=== PATIENT | male | born 1935 | race Caucasian/White ===

== ENCOUNTER → 2018-01-04 06:57 | Outpatient (CLI) | payer MEDICARE, SELFPAY ==
[2018-01-04 07:26] LABS: Add Manual Diff / Slide Review NO; Basophils Percent Auto 0.9 % (0-2); Eosinophils Percent Auto 2.4 % (2-4); Hematocrit 43.4 % (41-53); Hemoglobin 14.7 g/dL (13.5-17.5); Lymphocytes Percent Auto 46.3 % (25-40); Mean Corpuscular Hemoglobin 33.4 PG (26-34); Mean Corpuscular Volume 98.2 fL (80-100); Monocytes Percent Auto 6.4 % (3-14); Neutrophils Absolute Auto 3000 /uL (3000-5900); Platelet Count 151 X10^3/uL (150-400); Red Blood Cell Count 4.42 X10^6/uL (4.5-5.9); Red Cell Distribution Width 14.3 % (11.6-14.8); White Blood Cell Count 6.9 X10^3/uL (4.5-11.0)
[2018-01-04 07:38] LABS: Alanine Aminotransferase 29 IU/L (21-72); Albumin 4.7 g/dL (3.5-5.0); Albumin Globulin Ratio 1.5 (1.0-2.8); Alkaline Phosphatase 74 U/L (38-126); Aspartate Aminotransferase 31 IU/L (17-59); Bilirubin Total 0.6 mg/dL (0.2-1.3); Blood Urea Nitrogen 27 mg/dL (9-20); Carbon Dioxide 28 mmol/L (22-32); Chloride 105 mmol/L (98-107); Estimated Glomerular Filt Rate > 60.0 mL/min (>60); Globulin 3.1 g/dL (1.7-4.1); Glucose 100 mg/dL (80-110); HEMOLYSIS < 15 (0-50); Sodium 145 mmol/L (137-145); Total Protein 7.8 g/dL (6.3-8.2)
[2018-01-04 07:39] LABS: Potassium 5.7 mmol/L (3.4-5.1)
== END ==
PROVIDERS: PCP Family Medicine; Visit Provider Family Medicine
DX: E87.5 Hyperkalemia (principal); D69.9 Hemorrhagic condition, unspecified; D75.89 Other specified diseases of blood and blood-forming organs
CPT/HCPCS: 36415; 80053; 85025

== ENCOUNTER → 2018-10-31 06:55 | Outpatient (CLI) | payer MEDICARE, SELFPAY ==
[2018-10-31 10:05] LABS: Prostate Specific Antigen 1.82 ng/mL (0.10-4.00)
== END ==
PROVIDERS: PCP Family Medicine; Visit Provider Urology
DX: R97.20 Elevated prostate specific antigen [PSA] (principal)
CPT/HCPCS: 36415; 84153

== ENCOUNTER → 2019-08-30 08:20 | Outpatient (CLI) | payer MEDICARE, SELFPAY ==
[2019-08-30 09:54] LABS: Prostate Specific Antigen 2.93 ng/mL (0.10-4.00)
== END ==
PROVIDERS: PCP Family Medicine; Visit Provider Urology
DX: R97.20 Elevated prostate specific antigen [PSA] (principal)
CPT/HCPCS: 36415; 84153

== ENCOUNTER → 2020-04-12 07:55 | Outpatient (CLI) | payer MEDICARE, SELFPAY ==
[2020-04-12 09:33] LABS: Prostate Specific Antigen 3.21 ng/mL (0.10-4.00)
== END ==
PROVIDERS: PCP Family Medicine; Referring Provider Specialist; Visit Provider Specialist
DX: N40.0 Benign prostatic hyperplasia without lower urinary tract symptoms (principal)
CPT/HCPCS: 36415; 84153

== ENCOUNTER → 2020-08-23 10:59 | Outpatient (CLI) | payer MEDICARE, SELFPAY ==
--- NOTE | 2020-08-23 11:00 | DI.MRI.S_ITS ---
PROCEDURE: MR PELIS WO/W CON INDICATIONS: prostate cancer TECHNIQUE: Coronal HASTE, axial T1 FSE with fat saturation, 3-plane nonbreath-hold T2 FSE. After the administration of contrast, dynamic axial, delayed axial and coronal VIBE or 2-D FLASH with fat saturation through the pelvis. Optional diffusion weighted imaging and ADC may be performed. COMPARISON: [facility], CT, KIDNEY/ URETER/BLADDER, 05/06/2016, 14:17. FINDINGS: Image quality: Diffusion weighted and dynamic contrast enhanced images are diagnostic. Prostate: Gland size is 3.4 x 4.5 x 4.1 cm; ellipsoid gland volume is 32.6 mL. Lesion size(s): Lesion 1: 1.0 by 1.9 by 2.0 cm in oblique AP, oblique transverse, and craniocaudad dimensions. Lesion location(s): Lesion 1: Right-sided posterolateral mid level peripheral zone. This is best seen on the early contrast enhanced fat suppressed T1 weighted imaging. It is relatively poorly seen on the axial T2 imaging and can be seen asymmetrically present on the axial diffusion-weighted imaging. Lesion description: Lesion 1: The lesion is ovoid, sharply demarcated on axial T1 postcontrast fat suppressed early imaging, and does not show evidence of invasion directly through the right posterolateral peripheral prostate capsule into adjacent structures. T2 weighted imaging (T2WI) morphology score: Lesion 1: Peripheral zone PI-RADS score 5, given the circumscribed homogeneous moderately hypointense mass confined to the right peripheral zone prostate with greatest dimension greater than 1.5 cm. This lesion can be seen to asymmetrically thicken the peripheral zone on the right when compared to a normal dimension on the left. The transition zone demonstrates circumscribed in capsulated nodules with an appearance can Los consistent with BPH. Transition zone PI-RADS score 2. Diffusion weighted imaging (DWI) morphology score: Lesion 1: The ovoid masslike structure at the right posterolateral peripheral zone demonstrates elevated rather than depressed signal intensity on diffusion-weighted imaging. Typically prostate carcinoma is associated with a lower signal intensity than normal peripheral zone. Dynamic contrast enhancement (DCE): Lesion 1: Present Lesion PI-RADS score: Lesion 1: PI-RADS 3 overall Genitourinary system: Bladder wall thickness is normal. Distal ureters are non distended. Bowel and peritoneum: No pathologic free pelvic fluid. Inferior colon and small bowel loops are normal in caliber. Nodes and vessels: No pelvic or inguinal adenopathy by size criteria. Iliac vessels are normal in caliber. Soft tissues: No inguinal hernias. Bones: Marrow demonstrates normal overall signal, without lesions to suggest metastases. IMPRESSION: The prostate evaluation identifies a right posterolateral peripheral zone early enhancing ovoid sharply demarcated lesion, which is not associated with asymmetric low signal intensity on diffusion-weighted imaging. This is nonspecific in appearance, but within the transition zone sharply demarcated nodules are present consistent with BPH. A focal inflammatory process could explain the early enhancement pattern seen within the right-sided lesion discussed above. Dictated by: Ian Reyes M.D. on 08/26/2020 at 11:05 Approved by: Ian Reyes M.D. on 08/26/2020 at 12:00
== END ==
PROVIDERS: PCP Family Medicine; Referring Provider Family Medicine; Visit Provider Specialist
DX: C61 Malignant neoplasm of prostate (principal)
CPT/HCPCS: 72197

== ENCOUNTER → 2020-09-04 13:38 | Outpatient (CLI) | payer MEDICARE, SELFPAY ==
[2020-09-04] MEDS: COVID-19 VACC #1, MRNA(MOD) 100 MCG/0.5 ML VIAL IM (13:45)
== END ==
PROVIDERS: PCP Family Medicine; Visit Provider Internal Medicine
DX: Z23 Encounter for immunization (principal)
CPT/HCPCS: 0011A; 91301

== ENCOUNTER → 2020-10-03 08:19 | Outpatient (CLI) | payer MEDICARE, SELFPAY ==
[2020-10-03] MEDS: COVID-19 VACC #2, MRNA(MOD) 100 MCG/0.5 ML VIAL IM (08:23)
== END ==
PROVIDERS: PCP Family Medicine; Visit Provider Internal Medicine
DX: Z23 Encounter for immunization (principal)
CPT/HCPCS: 0012A; 91301

== ENCOUNTER → 2020-11-26 13:02 | Outpatient (CLI) | payer MEDICARE, SELFPAY | PROVIDERS: PCP Family Medicine; Referring Provider Specialist; Visit Provider Specialist | DX: N40.0 Benign prostatic hyperplasia without lower urinary tract symptoms (principal) | CPT/HCPCS: 36415; 84153 ==

== ENCOUNTER → 2021-04-23 10:21 | Outpatient (CLI) | payer MEDICARE, SELFPAY ==
[2021-04-23 12:02] LABS: Prostate Specific Antigen < 0.064 ng/mL (0.10-4.00)
== END ==
PROVIDERS: PCP Family Medicine; Referring Provider Specialist; Visit Provider Specialist
DX: C61 Malignant neoplasm of prostate (principal); R97.20 Elevated prostate specific antigen [PSA]
CPT/HCPCS: 36415; 84153

== ENCOUNTER → 2021-08-05 14:29 | Outpatient (CLI) | payer MEDICARE, SELFPAY ==
[2021-08-05 16:51] LABS: Prostate Specific Antigen < 0.064 ng/mL (0.10-4.00)
== END ==
PROVIDERS: PCP Family Medicine; Referring Provider Radiology Radiation Oncology; Visit Provider Radiology Radiation Oncology
DX: Z85.46 Personal history of malignant neoplasm of prostate (principal)
CPT/HCPCS: 36415; 84153

== ENCOUNTER → 2021-10-21 11:34 | Outpatient (CLI) | payer MEDICARE, SELFPAY ==
[2021-10-21 14:53] LABS: Prostate Specific Antigen < 0.064 ng/mL (0.10-4.00)
== END ==
PROVIDERS: PCP Family Medicine; Referring Provider Specialist; Visit Provider Specialist
DX: R97.20 Elevated prostate specific antigen [PSA] (principal)
CPT/HCPCS: 36415; 84153

== ENCOUNTER → 2022-02-16 09:54 | Outpatient (CLI) | payer MEDICARE, SELFPAY ==
[2022-02-16 12:19] LABS: Prostate Specific Antigen < 0.064 ng/mL (0.10-4.00)
== END ==
PROVIDERS: PCP Family Medicine; Referring Provider Specialist; Visit Provider Specialist
DX: C61 Malignant neoplasm of prostate (principal)
CPT/HCPCS: 36415; 84153

== ENCOUNTER → 2022-04-27 08:08 | Outpatient (CLI) | payer MEDICARE, SELFPAY ==
[2022-04-27 11:06] LABS: Prostate Specific Antigen < 0.064 ng/mL (0.10-4.00)
== END ==
PROVIDERS: PCP Family Medicine; Referring Provider Specialist; Visit Provider Specialist
DX: R97.20 Elevated prostate specific antigen [PSA] (principal)
CPT/HCPCS: 36415; 84153

== ENCOUNTER → 2023-05-11 10:06 | Outpatient (CLI) | payer MEDICARE, SELFPAY ==
[2023-05-11 11:58] LABS: Prostate Specific Antigen < 0.064 ng/mL (0.10-4.00)
== END ==
PROVIDERS: PCP Family Medicine; Referring Provider Specialist; Visit Provider Specialist
DX: R97.20 Elevated prostate specific antigen [PSA] (principal)
CPT/HCPCS: 36415; 84153

== ENCOUNTER → 2023-05-12 08:12 | Outpatient (CLI) | payer MEDICARE, SELFPAY ==
[2023-05-12 08:55] LABS: Add Manual Diff / Slide Review NO; Basophils Absolute Auto 0 /uL (0-100); Basophils Percent Auto 0.9 % (0-2); Eosinophils Absolute Auto 100 /uL (0-450); Eosinophils Percent Auto 2.7 % (2-4); Hematocrit 39.6 % (41-53); Hemoglobin 13.2 g/dL (13.5-17.5); Lymphocytes Absolute Auto 2600 /uL (1100-4500); Lymphocytes Percent Auto 46.8 % (25-40); Mean Corpuscular HGB Conc 33.4 % (30-36); Mean Corpuscular Hemoglobin 31.9 PG (26-34); Mean Corpuscular Volume 95.4 fL (80-100); Monocytes Absolute Auto 400 /uL (0-900); Monocytes Percent Auto 6.5 % (3-14); Neutrophils Absolute Auto 2400 /uL (1500-7000); Neutrophils Percent Auto 43.1 % (50-75); Platelet Count 166 X10^3/uL (150-400); Red Blood Cell Count 4.15 X10^6/uL (4.5-5.9); Red Cell Distribution Width 14.5 % (11.6-14.8); White Blood Cell Count 5.6 X10^3/uL (4.5-11.0)
[2023-05-12 09:26] LABS: Alanine Aminotransferase 24 IU/L (<50); Albumin 4.3 g/dL (3.5-5.0); Albumin Globulin Ratio 1.5 (1.0-2.8); Alkaline Phosphatase 78 U/L (38-126); Aspartate Aminotransferase 29 IU/L (17-59); BUN Creatinine Ratio 20.4 (6-22); Bilirubin Total 0.3 mg/dL (0.2-1.3); Blood Urea Nitrogen 21 mg/dL (9-20); C-Reactive Protein Quant < 0.5 mg/dL (<1.0); Calcium 10.1 mg/dL (8.4-10.2); Carbon Dioxide 24 mmol/L (22-32); Chloride 105 mmol/L (98-107); Cholesterol 190 mg/dL (140-199); Estimated Glomerular Filt Rate > 60 mL/min (>60); Globulin 2.9 g/dL (1.7-4.1); Glucose 104 mg/dL (80-110); HDL Cholesterol 68 mg/dL (40-60); HEMOLYSIS < 15 (0-50); LDL Cholesterol Calculated 105 mg/dL (<100); Potassium 4.9 mmol/L (3.4-5.1); Sodium 140 mmol/L (137-145); Total Protein 7.2 g/dL (6.3-8.2); Triglycerides 86 mg/dL (35-150)
[2023-05-12 09:49] LABS: Thyroid Stimulating Hormone 4.23 uIU/mL (0.47-4.68)
[2023-05-12 10:27] LABS: Folate > 20.0 ng/mL (2.76-20.0); Vitamin B12 405 pg/mL (239-931)
== END ==
PROVIDERS: PCP Family Medicine; Referring Provider Family Medicine; Visit Provider Family Medicine
DX: Z00.00 Encounter for general adult medical examination without abnormal findings (principal); E78.00 Pure hypercholesterolemia, unspecified; R73.9 Hyperglycemia, unspecified; Z13.0 Encounter for screening for diseases of the blood and blood-forming organs and certain disorders involving the immune mechanism; G62.9 Polyneuropathy, unspecified; D69.49 Other primary thrombocytopenia; D75.89 Other specified diseases of blood and blood-forming organs; E87.5 Hyperkalemia; R23.2 Flushing; R26.89 Other abnormalities of gait and mobility; F41.8 Other specified anxiety disorders
CPT/HCPCS: 36415; 80053; 80061; 82607; 82746; 83036; 84443; 85025; 86140

== ENCOUNTER → 2024-05-09 06:32 | Outpatient (CLI) | payer MEDICARE, SELFPAY ==
--- NOTE | 2024-05-09 06:34 | DI.ECHO.S_ITS ---
[facility]+ [facility] : : [id number] : [address] : : [id number] : : Phone: [phone] Echocardiogram Report + + :Name: ZEUS HEWITT Study Date: 05/09/2024 Height: 68 in : :Hospital ReadingLocation: Weight: 150 lb : : Gender: Male BSA: 1.8 m2 : :: 1935 Age: 89 yrs BP: 155/96 mmHg: :Reason For Study: Systolic Murmur : :Ordering Physician: ARIANA, : :WERNER Performed By: Kayy Goodwin : :Referring: WERNER LANE : + + Interpretation Summary The ejection fraction is estimated to be 55-60%. Grade II diastolic dysfunction. The left atrium is moderately dilated. The right ventricle is mildly dilated. The right ventricular systolic function is normal. The right atrium is mildly dilated. There is mild mitral regurgitation. There is mild aortic regurgitation. There is mild tricuspid regurgitation. The right ventricular systolic pressure is estimated to be at least 40 mmHg based on an estimated right atrial pressure of 8 mm Hg. Procedure: A two-dimensional transthoracic echocardiogram with color flow and Doppler was performed. The study quality was technically adequate. The patient had an echocardiogram, but there is no comparison study available. The patient was in sinus rhythm with heart rates between 54-64 bpm during the exam. The patient had occasional PACs during the exam. Left Ventricle: The left ventricle is normal in size and wall thickness. The ejection fraction is estimated to be 55-60%. Diastolic parameters suggest a pseudonormalization pattern, consistent with probable elevated filling pressures. Right Ventricle: The right ventricle is mildly dilated. The right ventricular systolic function is normal. Atria: The left atrium is moderately dilated. The right atrium is mildly dilated. There is no Doppler evidence for an interatrial shunt. Mitral Valve: There is mild mitral annular calcification. There is no mitral valve stenosis. There is mild mitral regurgitation. Aortic Valve: The aortic valve is trileaflet. The aortic valve opens well. The aortic valve is mildly calcified. There is no aortic valve stenosis. There is mild aortic regurgitation. Tricuspid Valve: The tricuspid valve leaflets are thin and pliable. There is mild tricuspid regurgitation. The right ventricular systolic pressure is estimated to be at least 40 mmHg based on an estimated right atrial pressure of 8 mm Hg. Pulmonic Valve: The pulmonic valve leaflets are thin and pliable; valve motion is normal. There is mild pulmonic regurgitation. Great Vessels: The aortic root is normal size. The ascending aorta is at the upper limits of normal in size. The aortic arch is normal in size. The pulmonary artery is not well visualized, but is probably normal size. The IVC is of normal diameter and collapses less than 50% with a sniff. This suggests a right atrial pressure of 8 mm Hg. Pericardium/ Pleura There is an anterior echo-free space consistent with a fat pad. There is no pericardial effusion. There is no pleural effusion. MMode/2D Measurements & Calculations LVIDd: 4.5 cm LVOT diam: 2.0 cm LVIDs: 2.7 cm Ao root diam: 3.8 cm FS: 40.5 % asc Aorta Diam: 3.8 cm EPSS: 0.78 cm Ao Arch Diam (Prox Trans): 3.2 cm IVSd: 0.83 cm LVPWd: 0.79 cm LV wells. diameter/BSA (cm/m^2): 2.5 LV sys. diameter/BSA (cm/m^2): 1.5 LA A2 area: 21.9 cm2 RA long axis: 6.2 cm LA A4 area: 27.9 cm2 RA area: 21.7 cm2 LA length (vol): 6.8 cm RA vol: 64.5 ml LA vol: 76.4 ml RA : 35.7 ml/m2 LA vol index: 42.2 ml/m2 IVC diam: 2.0 cm TAPSE: 3.2 cm Doppler Measurements & Calculations Ao V2 max: 190.2 cm/sec LVOT Max Waylon: 111.7 cm/sec Ao V2 mean: 123.5 cm/sec LV V1 max P.0 mmHg Ao max P.5 mmHg LV V1 VTI: 28.5 cm Ao mean P.1 mmHg PIYUSH(I,D): 2.1 cm2 Ao V2 VTI: 42.0 cm PIYUSH(V,D): 1.9 cm2 sev ratio: 0.68 PIYUSH indexed to BSA (cm^2/m^2): 1.2 MV E max waylon: 82.2 cm/sec TR max waylon: 268.7 cm/sec MV A max waylon: 76.9 cm/sec TR max P.2 mmHg MV E/A: 1.1 PA pr(Accel): 27.6 mmHg Med Peak E' Waylon: 6.5 cm/sec E/E' med: 12.6 Lat Peak E' Waylon: 4.8 cm/sec E/E' lat: 17.1 E/e' average: 14.8 MV dec time: 0.21 sec MVA(VTI): 2.6 cm2 MV V2 mean: 55.5 cm/sec SV(LVOT): 89.9 ml MV mean P.4 mmHg MV V2 VTI: 34.2 cm Reading Physician:11:20 AM
== END ==
PROVIDERS: PCP Family Medicine; Referring Provider Family Medicine; Visit Provider Family Medicine
DX: R01.1 Cardiac murmur, unspecified (principal); I08.3 Combined rheumatic disorders of mitral, aortic and tricuspid valves
CPT/HCPCS: 93306

== ENCOUNTER → 2024-05-18 10:34 | Outpatient (CLI) | payer MEDICARE, SELFPAY ==
[2024-05-18 13:22] LABS: Prostate Specific Antigen < 0.064 ng/mL (0.10-4.00)
== END ==
PROVIDERS: PCP Family Medicine; Referring Provider Urology; Visit Provider Urology
DX: R97.20 Elevated prostate specific antigen [PSA] (principal)
CPT/HCPCS: 36415; 84153

== ENCOUNTER → 2024-11-15 12:53 | Outpatient (CLI) | payer MEDICARE, SELFPAY ==
[2024-11-15 14:35] LABS: Prostate Specific Antigen < 0.064 ng/mL (0.10-4.00)
== END ==
PROVIDERS: PCP Family Medicine; Referring Provider Urology; Visit Provider Urology
DX: N40.1 Benign prostatic hyperplasia with lower urinary tract symptoms (principal); C61 Malignant neoplasm of prostate
CPT/HCPCS: 36415; 84153

== ENCOUNTER 2024-12-21 09:25 | Emergency (ER) | payer MEDICARE, SELFPAY ==
[2024-12-21] VITALS (16 sets, daily range): BP systolic 154–200; BP diastolic 74–93; PULSE 53–76; RESP 16–22; TEMP 36.6; O2SAT 93–97; BMI 25.1
--- NOTE | 2024-12-21 09:37 | DI.RAD.S_ITS ---
PROCEDURE: XR CHEST 1V INDICATIONS: Chest Pain TECHNIQUE: One view of the chest was acquired. COMPARISON: None. FINDINGS: Surgical changes and devices: None. Lungs and pleura: Likely left basilar atelectasis. Lungs are otherwise clear. No pleural effusions or pneumothorax. Mediastinum: Mediastinal contours appear normal. Heart size is normal. Bones and chest wall: No suspicious bony lesions. Overlying soft tissues appear unremarkable. IMPRESSION: No acute cardiopulmonary abnormality is seen. Dictated by: Allan Vilchis M.D. on 12/21/2024 at 10:08 Approved by: lAlan Vilchis M.D. on 12/21/2024 at 10:08
--- NOTE | 2024-12-21 09:39 | EKG_ITS ---
[address] [id number] Test Date: 2024-12-21 Pat Name: Angel Khanna Department: Room: Gender: Male Crossing Tender: NANCY : 1935 Requested By: Order Number: [id number] Reading MD: Nick Diallo Measurements Intervals [place] Rate: 62 P: 77 SD: 266 QRS: -47 QRSD: 148 T: 65 QT: 452 QTc: 458 Interpretive Statements Sinus rhythm with 1st degree AV block Left axis deviation Left bundle branch block Electronically Signed On 12-22-2024 19:07:44 PDT by Nick Diallo
[2024-12-21 09:44] LABS: Add Manual Diff / Slide Review NO; Basophils Absolute Auto 0 /uL (0-100); Basophils Percent Auto 0.7 % (0-2); Eosinophils Absolute Auto 100 /uL (0-450); Hematocrit 40.3 % (41-53); Hemoglobin 13.6 g/dL (13.5-17.5); Lymphocytes Absolute Auto 1600 /uL (1100-4500); Mean Corpuscular HGB Conc 33.7 % (30-36); Mean Corpuscular Hemoglobin 32.7 PG (26-34); Mean Corpuscular Volume 97.2 fL (80-100); Monocytes Absolute Auto 400 /uL (0-900); Monocytes Percent Auto 7.7 % (3-14); Neutrophils Absolute Auto 2500 /uL (1500-7000); Neutrophils Percent Auto 54.6 % (50-75); Platelet Count 155 X10^3/uL (150-400); Red Blood Cell Count 4.15 X10^6/uL (4.5-5.9); Red Cell Distribution Width 14.3 % (11.6-14.8); White Blood Cell Count 4.6 X10^3/uL (4.5-11.0)
--- NOTE | 2024-12-21 09:47 | ED.ARRPALP ---
HPI - Arrhythmia/Palpitations General Chief Complaint: Arrhythmia/Palpitations Stated Complaint: Afib Time Seen by Provider: 12/21/24 09:47 Source: EMS Mode of arrival: EMS History of Present Illness HPI narrative: 89-year-old male without history of known atrial fibrillation or flutter, was walking on the sidewalk, had acute leg weakness, eased himself down to the ground, bystander called 911, arrival by EMS, during transport found to have rapid ventricular rate, felt to be atrial fibrillation with RVR, during his ALS transport was given IV diltiazem 5 mg doses x3 for a total of 15 mg, on arrival here patient felt better. No leg weakness. No shortness of breath or palpitations symptoms. No dizziness. No prior history recalled of TIA or stroke, no low back pain. Related Data Home Medications Medication Instructions Recorded Confirmed aspirin 81 mg tablet,delayed 81 mg PO QDAY ##0 02/23/17 11/23/24 release calcium 600 mg (as 1 tab PO Q DAY ##0 02/23/17 11/23/24 carbonate)-vitamin D3 10 mcg (400 unit) capsule (Calcium with Vitamin D3) cholecalciferol (vitamin D3) 50 1 tab PO QDAY ##0 02/23/17 11/23/24 mcg (2,000 unit) tablet (Vitamin D3) mirtazapine 45 mg tablet (Remeron) 45 mg PO EVERYOTHERDA ##0 02/23/17 11/23/24 multivitamin (Multiple Vitamins 1 tab PO QDAY ##0 02/23/17 11/23/24 tablet) flaxseed PO 05/05/22 11/23/24 Previous Rx's Medication Instructions Recorded sodium,potassium,mag sulfates 17.5 See Rx Instructions PO .COMPLEX 05/09/24 gram-3.13 gram-1.6 gram oral soln #354 mL (Suprep Bowel Prep Kit) finasteride 5 mg tablet 5 mg PO DAILY #90 tabs 07/11/24 Allergies Allergy/AdvReac Type Severity Reaction Status Date / Time No Known Drug Allergies Allergy Verified 12/21/24 09:37 Patient History Medical History Prostate cancer History of malignant neoplasm of prostate Nodular prostate with lower urinary tract symptoms Elevated PSA Erectile dysfunction Nephrolithiasis Elevated PSA Nodular prostate with lower urinary tract symptoms Erectile dysfunction Urolithiasis Elevated PSA Skin cancer Kidney stone Urinary frequency Urolithiasis BPH loc w urin obs/LUTS Elevated PSA Social History Smoking Status: Never smoker Smoking Status: Never smoker Exam Narrative Exam Narrative: GENERAL: Well-developed patient, in mild distress. HEAD: Atraumatic. Normocephalic. EYES: Pupils equal round and reactive. Extraocular motions intact. No scleral icterus. No injection or drainage. ENT: Nose without bleeding, purulent drainage. Throat without erythema, tonsillar hypertrophy or exudate. Airway patent. NECK: Trachea midline. Non tender CARDIOVASCULAR: Regular rate and rhythm, murmur left upper sternal border 1/6, gallops, or rubs. RESPIRATORY: Clear to auscultation. Breath sounds equal bilaterally. No wheezes, rales, or rhonchi. GASTROINTESTINAL: Abdomen soft, non-tender, nondistended. EXTREMITIES: No edema or joint tenderness. BACK: Nontender without deformity or crepitance. No flank tenderness. NEURO: AOx3. Cranial nerves negative as tested. Motor 5/5 BUE and BLE. Finger to nose testing normal right and left sides. SKIN: No rash or erythema of visible areas Initial Vital Signs Initial Vital Signs: Vital Signs Temperature 97.9 F 12/21/24 09:30 Pulse Rate 65 12/21/24 09:30 Respiratory Rate 16 12/21/24 09:30 Blood Pressure 162/74 H 12/21/24 09:30 Pulse Oximetry 97 12/21/24 09:30 Oxygen Delivery Method Room Air 12/21/24 09:30 Course Orders Ordered: ED Orders 12/21/24 11:40 Troponin I Stat 12/21/24 12:20 MR head/brain wo con Stat Discontinued Medications Aspirin (Aspirin 81 Mg Chew Tab) 324 mg PO NOW ONE Stop: 12/21/24 09:38 Last Admin: 12/21/24 11:32 Dose: Not Given Documented By: NICCI Bacitracin (Bacitracin Oint 0.9 Gm Pckt) 1 applic TOP NOW ONE Stop: 12/21/24 15:37 Last Admin: 12/21/24 15:46 Dose: 1 applic Documented By: NICCI Neomycin/Polymyxin/Bacitracin (Neomycin/Polymyxin/Bacitra Ud Oint) 1 each TOP NOW ONE Stop: 12/21/24 15:34 Last Admin: 12/21/24 15:47 Dose: Not Given Documented By: NICCI Vital Signs Vital signs: Vital Signs - 8 hr 12/21/24 12:30 12/21/24 12:36 12/21/24 12:36 Pulse Rate 60 61 Respiratory Rate 20 Blood Pressure 167/81 H Pulse Oximetry 96 96 12/21/24 13:00 12/21/24 13:00 12/21/24 13:30 Pulse Rate 55 L Respiratory Rate 20 Blood Pressure 170/78 H 187/84 H Pulse Oximetry 96 12/21/24 13:30 12/21/24 14:00 12/21/24 14:00 Pulse Rate 57 L 55 L Respiratory Rate 19 Blood Pressure 179/80 H Pulse Oximetry 97 96 12/21/24 14:54 12/21/24 14:56 12/21/24 14:56 Pulse Rate Respiratory Rate Blood Pressure 200/93 H Pulse Oximetry 97 97 12/21/24 15:00 12/21/24 15:00 Pulse Rate 76 Respiratory Rate Blood Pressure 170/89 H Pulse Oximetry MDM - Arrhythmia/Palpitations Lab Data Attestation: I reviewed the patient's lab results. 12/21/24 09:30 12/21/24 09:30 Labs: Lab Results 12/21/24 12/21/24 Range/Units 09:30 11:40 WBC 4.6 (4.5-11.0) X10^3/uL RBC 4.15 L (4.5-5.9) X10^6/uL Hgb 13.6 (13.5-17.5) g/dL Hct 40.3 L (41-53) % MCV 97.2 (80-100) fL MCH 32.7 (26-34) PG MCHC 33.7 (30-36) % RDW 14.3 (11.6-14.8) % Plt Count 155 (150-400) X10^3/uL Neut % (Auto) 54.6 (50-75) % Lymph % (Auto) 35.0 (25-40) % Roberts % (Auto) 7.7 (3-14) % Eos % (Auto) 2.0 (2-4) % Baso % (Auto) 0.7 (0-2) % Neut # (Auto) 2500 (6044-9570) /uL Lymph # (Auto) 1600 (6168-3118) /uL Roberts # (Auto) 400 (0-900) /uL Eos # (Auto) 100 (0-450) /uL Baso # (Auto) 0 (0-100) /uL PT 11.1 (9.4-12.5) SECONDS INR 1.0 (0.9-1.3) APTT 32 (25.1-36.5) SECONDS Sodium 140 (137-145) mmol/L Potassium 4.8 (3.4-5.1) mmol/L Chloride 106 (98-107) mmol/L Carbon Dioxide 21 L (22-32) mmol/L BUN 16 (9-20) mg/dL Creatinine 1.17 (0.66-1.25) mg/dL Estimated GFR > 60 (>60) mL/min BUN/Creatinine Ratio 13.7 (6-22) Glucose 112 H (70-99) mg/dL Calcium 9.8 (8.4-10.2) mg/dL Magnesium 1.9 (1.6-2.3) mg/dL Total Bilirubin 0.6 (0.2-1.3) mg/dL AST 37 (17-59) IU/L ALT 24 (<50) IU/L Alkaline Phosphatase 72 (38-126) U/L Total Creatine Kinase 64 (55-170) U/L Troponin I < 0.012 0.024 (0.01-0.034) ng/mL NT-Pro-B Natriuret Pep 465 H (<450) pg/mL Total Protein 7.7 (6.3-8.2) g/dL Albumin 4.6 (3.5-5.0) g/dL Globulin 3.1 (1.7-4.1) g/dL Albumin/Globulin Ratio 1.5 (1.0-2.8) Lipase 57 (23-300) U/L Imaging Data Chest x-ray: [facility]: Close Chest X-Ray (Signed) Allan Vilchis - 12/21/24 Launch?[address] [address] XRay Report Signed Patient: Angel Khanna MR#: [id number] : 1935 Acct:[id number] Age/Sex: 89 / M Date of Service: 12/21/24 Loc: ED Accession Number: [id number] Procedure: XR chest 1V Ordering Provider: Dimitrios Bush MD PROCEDURE: XR CHEST 1V INDICATIONS: Chest Pain TECHNIQUE: One view of the chest was acquired. COMPARISON: None. FINDINGS: Surgical changes and devices: None. Lungs and pleura: Likely left basilar atelectasis. Lungs are otherwise clear. No pleural effusions or pneumothorax. Mediastinum: Mediastinal contours appear normal. Heart size is normal. Bones and chest wall: No suspicious bony lesions. Overlying soft tissues appear unremarkable. IMPRESSION: No acute cardiopulmonary abnormality is seen. Dictated by: Allan Vilchis M.D. on 12/21/2024 at 10:08 Approved by: Allan Vilchis M.D. on 12/21/2024 at 10:08 CT scan - head: [facility]: Close Head/Neck CTA (Signed) Allan Vilchis - 12/21/[address] (Signed) Allan Vilchis - 12/21/24 Chest X-Ray (Signed) Allan Vilchis - 12/21/[address] [place] [address] CT Scan Report Signed Patient: Angel Khanna MR#: [id number] : 1935 Acct:[id number] Age/Sex: 89 / M Date of Service: 12/21/24 Loc: ED Accession Number: [id number] Procedure: CT head/brain wo con Ordering Provider: Dimitrios Bush MD PROCEDURE: CT HEAD/BRAIN WO CON INDICATIONS: leg leg weakness TECHNIQUE: Noncontrast 4.5 mm thick angled axial sections acquired from the foramen magnum to the vertex, with coronal and sagittal reformats. For radiation dose reduction, the following was used: automated exposure control, adjustment of mA and/or kV according to patient size. COMPARISON: None. FINDINGS: Image quality: Diagnostic. CSF spaces: Basal cisterns are patent. No extra-axial fluid collections. The ventricles are symmetric in size and shape. Brain: No intracranial bleeds or mass effect. There is cerebral volume loss, with resultant ventricular and sulcal prominence. There are periventricular and deep white matter chronic small vessel ischemic changes. There is intracranial internal carotid artery atherosclerosis. Skull and face: Calvarium and visualized facial bones appear intact, without suspicious lesions. Sinuses: Visualized sinuses and mastoids are clear. IMPRESSION: No acute intracranial pathology. Dictated by: Allan Vilchis M.D. on 12/21/2024 at 11:48 Approved by: Allan Vilchis M.D. on 12/21/2024 at 11:50 CTA - brain/neck: Radiologist[facility] Impresson: [place] [address] CT Scan Report Signed Patient: Angel Khanna MR#: [id number] : 1935 Acct:[id number] Age/Sex: 89 / M Date of Service: 12/21/24 Loc: ED Accession Number: [id number] Procedure: CT angio head and neck Ordering Provider: Dimitrios Bush MD PROCEDURE: CT ANGIO HEAD AND NECK INDICATIONS: left leg weak, resolved TECHNIQUE: After the administration of intravenous contrast, 1 mm thick sections acquired from the aortic arch through the [place] of [place]. 3-dimensional eoibvbs-rwjkrsdha-geggjoczrn (MIP) and/or volume rendering reformats were acquired of the central intracranial vasculature and neck separately. For radiation dose reduction, the following was used: automated exposure control, adjustment of mA and/or kV according to patient size. COMPARISON: None. FINDINGS: Image quality: Diagnostic. BRAIN: Please refer to separately dictated CT of the head. HEAD CT ANGIOGRAPHY: Anterior circulation: Intracranial internal carotid arteries are normal in size and flow with atherosclerotic calcifications. The flow within the paired anterior cerebral arteries is normal and symmetric. The flow within the middle cerebral arteries is normal and symmetric. The anterior communicating artery is seen. No aneurysms are seen. Posterior circulation: Visualized portions of the vertebral arteries demonstrate normal caliber, and join to form a normal appearing basilar artery. Flow within the posterior cerebral arteries is normal and symmetric. No aneurysms are seen. NECK CT ANGIOGRAPHY: Carotid system: The great vessels demonstrate a conventional anatomy as they arise from the aortic arch. The origins of the common carotid arteries appear patent. The common carotid arteries demonstrate normal caliber and courses. Atherosclerotic calcifications of the carotid bifurcations with mild stenosis of the left proximal ICA, less than 50% and no significant stenosis of the right proximal ICA. Otherwise, the internal carotid arteries demonstrate normal calibers and tortuous courses. Posterior circulation: The origins of the vertebral arteries both appear widely patent. The more superior extracranial portions of both vertebral arteries also demonstrate normal courses and calibers. They join to form a normal appearing basilar artery. Soft tissues: Visualized neck soft tissues demonstrate no suspicious abnormalities. Right upper lobe 4 mm calcified granuloma. Partially visualized right lower lobe dependent atelectasis versus consolidation. Bones: No suspicious bony lesions. Visualized cervical spine appears normally aligned. IMPRESSION: No significant intracranial arterial abnormality is seen. No significant abnormality is seen within the arteries of the neck. Partially visualized dependent atelectasis versus consolidation of the right lower lobe. Any quantitative measurements of stenosis were performed using NASCET criteria. Dictated by: Allan Vilchis M.D. on 12/21/2024 at 11:55 Approved by: Allan Vilchis M.D. on 12/21/2024 at 12:02 MRI Brain: Radiologist[facility] Impresson: [place] [address] Magnetic Resonance Report Signed Patient: Angel Khanna MR#: [id number] : 1935 Acct:[id number] Age/Sex: 89 / M Date of Service: 12/21/24 Loc: ED Accession Number: [id number] Procedure: MR head/brain wo con Ordering Provider: Dimitrios Bush MD PROCEDURE: MR HEAD/BRAIN WO CON INDICATIONS: resolved LLE weakness TECHNIQUE: Noncontrast axial T1 spin echo, axial T2 fast spin echo, sagittal and axial FLAIR, coronal T2 fast spin echo, axial gradient echo, axial diffusion and ADC through the brain. COMPARISON: [facility], CT, CT HEAD/BRAIN WO CON, 12/21/2024, 11:28. FINDINGS: Image quality: Diagnostic CSF spaces: Basal cisterns are patent. Lateral ventricles are symmetric. Volume: Volume loss. Periventricular white matter signal abnormality most commonly seen with small vessel disease. These findings are moderate Brain: No acute infarct on diffusion images. No acute hemorrhage. Craniofacial structures: Mild paranasal sinus mucosal thickening. IMPRESSION: No acute infarct or hematoma. Dictated by: Pan Coombs M.D. on 12/21/2024 at 15:03 Approved by: Pna Coombs M.D. on 12/21/2024 at 15:05 ECG Data Attestation: I personally reviewed and interpreted this ECG as follows: Interpretation: Sinus rhythm with first-degree AV block, ventricular rate 62. NJ interval 266. Left bundle branch block present. QRS 148, QTC 458. MDM Narrative Medical decision making narrative: 89-year-old male with history of cardiac murmur, last echocardiogram 9 months ago he believes, no surgical interventions anticipated at this time, no known history of atrial fibrillation, was walking on the sidewalk when he felt weakness in his left leg, slumped to the ground, did not fall or hit his head, no blood thinner medications, EMS transport from seen, during EMS transport patient felt to have AFib RVR and was given serial 5 mg IV diltiazem dose boluses for total of 15 mg IV diltiazem. On arrival in triage patient in sinus rhythm, no atrial fibrillation or flutter, no significant ectopy on monitor. He denies chest pain. He also denies any residual left leg weakness. Chest x-ray no acute changes, see radiology report. EKG with sinus rhythm, first-degree AV block after IV diltiazem boluses noted, left bundle. No comparisons available. Initial troponin negative, we will repeat interval troponin. Unclear etiology of his transient/resolved left leg weakness. CT head noncontrast. CT angiogram head and neck vessels. No back pain recent or current, we will hold on lumbar spine imaging at this time. CT head no acute changes. See radiology report. CT angiogram head and neck vessels. No acute changes, no significant narrowing, no thromboses. See radiology report. MRI brain no acute changes. See radiology report. Above negative imaging studies relayed verbally with the patient. Could consider further evaluation for possible TIA with admission for telemetry, if he did have resolved paroxysmal AFib consider anticoagulation, consider echocardiogram, consider antiplatelets/anticoagulation. He would like to go home now. Does not want any further evaluation here in the emergency department. He is not want to start any new medications for now. He would like to discuss things with his primary care provider Dr. Ferreira in follow-up. Discharged home with family. Return precautions discussed. Discharge Plan Departure Patient Disposition: Home Clinical Impression: Left leg weakness, Near syncope, Abrasion of left knee Activity Restrictions/Additional Instructions: 89-year-old male had acute onset left leg weakness while walking, transported by EMS who felt the patient had atrial fibrillation with rapid ventricular response, which would have been a new diagnosis. EKG and telemetry monitoring here did not confirm any atrial fibrillation. However the rhythm strips from EMS worse suspicious for atrial fibrillation, irregularly irregular, and IV diltiazem doses were given x3. First-degree AV heart block noted on the EKG, we will hold any further diltiazem for now. Serial blood tests troponin not suggestive of heart attack at this time. Consideration for transient ischemic attack regarding the unilateral leg weakness without back pain. CT noncontrast scan of the head was done, no acute changes. CT angiogram of the head and neck vessels done, no acute changes, no narrowing, no thromboses. MRI of the brain was even performed, showed no acute changes. We discussed possible further evaluation of the might include admission on telemetry, echocardiogram, starting medications such as anti platelet blood thinners or other blood thinner medications. You felt better and wanted to go home now, did not want any further evaluation. You preferred to have further workup as an outpatient for now. Follow up with your regular provider. Discharged home per your request. Return to this/nearest emergency department for any change worsening symptoms or any concerns prior. Prescriptions: No Action aspirin 81 MG tablet,delayed release (DR/EC) 81 mg PO QDAY Qty: 0 cholecalciferol (vitamin D3) [Vitamin D3] 2,000 UNIT tablet 1 tab PO QDAY Qty: 0 mirtazapine [Remeron] 45 MG tablet 45 mg PO EVERYOTHERDA Qty: 0 multivitamin [Multiple Vitamins] 1 EACH tablet 1 tab PO QDAY Qty: 0 calcium carbonate-vitamin D3 [Calcium 600 with Vitamin D3] 600 MG/200 IU capsule 1 tab PO Q DAY Qty: 0 sodium,potassium,mag sulfates [Suprep Bowel Prep Kit] 17.5-3.13-1.6 gram recon soln See Rx Instructions PO .COMPLEX Qty: 354 0RF Rx Instructions: take as directed by Physician finasteride 5 mg tablet 5 mg PO DAILY Qty: 90 3RF flaxseed PO Referrals: Jessica Ferreira MD [Primary Care Provider] - Stand Alone Forms: Patient Portal/API/Survey
[2024-12-21 09:50] LABS: Prothrombin Time 11.1 SECONDS (9.4-12.5)
[2024-12-21 09:53] LABS: PTT Partial Thromboplastin Tim 32 SECONDS (25.1-36.5)
[2024-12-21 09:54] LABS: Alanine Aminotransferase 24 IU/L (<50); Albumin 4.6 g/dL (3.5-5.0); Albumin Globulin Ratio 1.5 (1.0-2.8); Alkaline Phosphatase 72 U/L (38-126); Aspartate Aminotransferase 37 IU/L (17-59); BUN Creatinine Ratio 13.7 (6-22); Bilirubin Total 0.6 mg/dL (0.2-1.3); Blood Urea Nitrogen 16 mg/dL (9-20); Calcium 9.8 mg/dL (8.4-10.2); Carbon Dioxide 21 mmol/L (22-32); Chloride 106 mmol/L (98-107); Creatine Kinase 64 U/L (55-170); Estimated Glomerular Filt Rate > 60 mL/min (>60); Globulin 3.1 g/dL (1.7-4.1); Glucose 112 mg/dL (70-99); HEMOLYSIS < 15 (0-50); Lipase 57 U/L (23-300); Magnesium 1.9 mg/dL (1.6-2.3); Potassium 4.8 mmol/L (3.4-5.1); Sodium 140 mmol/L (137-145); Total Protein 7.7 g/dL (6.3-8.2)
[2024-12-21 10:07] LABS: NT-proBNP (BNP-Adult 18+) 465 pg/mL (<450); Troponin I < 0.012 ng/mL (0.01-0.034)
--- NOTE | 2024-12-21 10:22 | INF.NOTE ---
Pt awake and alert. Denies chest pain. HR regular, CO interval extended.
--- NOTE | 2024-12-21 11:04 | DI.CT.S_ITS ---
PROCEDURE: CT HEAD/BRAIN WO CON INDICATIONS: leg leg weakness TECHNIQUE: Noncontrast 4.5 mm thick angled axial sections acquired from the foramen magnum to the vertex, with coronal and sagittal reformats. For radiation dose reduction, the following was used: automated exposure control, adjustment of mA and/or kV according to patient size. COMPARISON: None. FINDINGS: Image quality: Diagnostic. CSF spaces: Basal cisterns are patent. No extra-axial fluid collections. The ventricles are symmetric in size and shape. Brain: No intracranial bleeds or mass effect. There is cerebral volume loss, with resultant ventricular and sulcal prominence. There are periventricular and deep white matter chronic small vessel ischemic changes. There is intracranial internal carotid artery atherosclerosis. Skull and face: Calvarium and visualized facial bones appear intact, without suspicious lesions. Sinuses: Visualized sinuses and mastoids are clear. IMPRESSION: No acute intracranial pathology. Dictated by: Allan Vilchis M.D. on 12/21/2024 at 11:48 Approved by: Allan Vilchis M.D. on 12/21/2024 at 11:50
--- NOTE | 2024-12-21 11:05 | DI.CT.S_ITS ---
PROCEDURE: CT ANGIO HEAD AND NECK INDICATIONS: left leg weak, resolved TECHNIQUE: After the administration of intravenous contrast, 1 mm thick sections acquired from the aortic arch through the [place] of [place]. 3-dimensional btmymns-ntxxxutan-kyqpuwvdzx (MIP) and/or volume rendering reformats were acquired of the central intracranial vasculature and neck separately. For radiation dose reduction, the following was used: automated exposure control, adjustment of mA and/or kV according to patient size. COMPARISON: None. FINDINGS: Image quality: Diagnostic. BRAIN: Please refer to separately dictated CT of the head. HEAD CT ANGIOGRAPHY: Anterior circulation: Intracranial internal carotid arteries are normal in size and flow with atherosclerotic calcifications. The flow within the paired anterior cerebral arteries is normal and symmetric. The flow within the middle cerebral arteries is normal and symmetric. The anterior communicating artery is seen. No aneurysms are seen. Posterior circulation: Visualized portions of the vertebral arteries demonstrate normal caliber, and join to form a normal appearing basilar artery. Flow within the posterior cerebral arteries is normal and symmetric. No aneurysms are seen. NECK CT ANGIOGRAPHY: Carotid system: The great vessels demonstrate a conventional anatomy as they arise from the aortic arch. The origins of the common carotid arteries appear patent. The common carotid arteries demonstrate normal caliber and courses. Atherosclerotic calcifications of the carotid bifurcations with mild stenosis of the left proximal ICA, less than 50% and no significant stenosis of the right proximal ICA. Otherwise, the internal carotid arteries demonstrate normal calibers and tortuous courses. Posterior circulation: The origins of the vertebral arteries both appear widely patent. The more superior extracranial portions of both vertebral arteries also demonstrate normal courses and calibers. They join to form a normal appearing basilar artery. Soft tissues: Visualized neck soft tissues demonstrate no suspicious abnormalities. Right upper lobe 4 mm calcified granuloma. Partially visualized right lower lobe dependent atelectasis versus consolidation. Bones: No suspicious bony lesions. Visualized cervical spine appears normally aligned. IMPRESSION: No significant intracranial arterial abnormality is seen. No significant abnormality is seen within the arteries of the neck. Partially visualized dependent atelectasis versus consolidation of the right lower lobe. Any quantitative measurements of stenosis were performed using NASCET criteria. Dictated by: Allan Vilchis M.D. on 12/21/2024 at 11:55 Approved by: Allan Vilchis M.D. on 12/21/2024 at 12:02
[2024-12-21 12:11] LABS: Troponin I 0.024 ng/mL (0.01-0.034)
--- NOTE | 2024-12-21 12:20 | DI.MRI.S_ITS ---
PROCEDURE: MR HEAD/BRAIN WO CON INDICATIONS: resolved LLE weakness TECHNIQUE: Noncontrast axial T1 spin echo, axial T2 fast spin echo, sagittal and axial FLAIR, coronal T2 fast spin echo, axial gradient echo, axial diffusion and ADC through the brain. COMPARISON: [facility], CT, CT HEAD/BRAIN WO CON, 12/21/2024, 11:28. FINDINGS: Image quality: Diagnostic CSF spaces: Basal cisterns are patent. Lateral ventricles are symmetric. Volume: Volume loss. Periventricular white matter signal abnormality most commonly seen with small vessel disease. These findings are moderate Brain: No acute infarct on diffusion images. No acute hemorrhage. Craniofacial structures: Mild paranasal sinus mucosal thickening. IMPRESSION: No acute infarct or hematoma. Dictated by: Pan Coombs M.D. on 12/21/2024 at 15:03 Approved by: Pan Coombs M.D. on 12/21/2024 at 15:05
[2024-12-21] MEDS: BACITRACIN OINT 0.9 GM PCKT 1 APPLIC TOP (15:46)
== END 2024-12-21 15:45 | disposition home or self-care (01) ==
PROVIDERS: Emergency Provider Emergency Medicine; PCP Family Medicine
DX: R53.1 Weakness (principal); R55 Syncope and collapse; S80.212A Abrasion, left knee, initial encounter; R07.9 Chest pain, unspecified; I44.0 Atrioventricular block, first degree
CPT/HCPCS: 36415; 70450; 70496; 70498; 70551; 71045; 80053; 82550; 83690; 83735; 83880; 84484; 85025; 85610; 85730; 93005; 99283; 99284; Q9967

== ENCOUNTER → 2025-01-04 08:50 | Outpatient (CLI) | payer MEDICARE, SELFPAY ==
--- NOTE | 2025-01-04 08:53 | DI.ECHO.S_ITS ---
[facility]+ [facility] : : [id number] : : [address] : : [id number] : : Phone: [phone] Echocardiogram Report + + :Name: ZEUS HEWITT Study Date: 01/04/2025 Height: 68 in : :Hospital ReadingLocation: Weight: 165 lb : : Gender: Male BSA: 1.9 m2 : :: 1935 Age: 89 yrs BP: 168/86 mmHg: :Reason For Study: BILATERAL LEG WEAKNESS : :Ordering Physician: ARIANA, : :WERNER Performed By: Yves Nolan : :Referring: WERNER LANE : + + Interpretation Summary The ejection fraction is estimated to be 60-65%. Grade II diastolic dysfunction. The left atrium is severely dilated. The right ventricle is mild to moderately dilated. The right ventricular systolic function is normal. The right atrium is mild to moderately dilated. There is mild tricuspid regurgitation. Right ventricular systolic pressure is estimated to be 39 mmHg plus the clinically estimated CVP which cannot be estimated on this exam. The ascending aorta is mildly enlarged. No significant change compared to prior study 05/09/2024. Procedure: A two-dimensional transthoracic echocardiogram with color flow and Doppler was performed. The study quality was technically good. Comparison is made with the echocardiogram of 05/09/2024. The heart rate ranged between 59-74 bpm during the study. Left Ventricle: The left ventricle is normal in size. There is normal left ventricular wall thickness. There is no ventricular septal defect visualized. The ejection fraction is estimated to be 60-65%. Diastolic parameters suggest a pseudonormalization pattern, consistent with probable elevated filling pressures. Right Ventricle: The right ventricle is mild to moderately dilated. The right ventricular systolic function is normal. Atria: The left atrium is severely dilated. The right atrium is mild to moderately dilated. There is no Doppler evidence for an interatrial shunt. Mitral Valve: There is mild mitral annular calcification. The mitral valve leaflets are mildly calcified. There is trace mitral regurgitation. Aortic Valve: The aortic valve is trileaflet. The aortic valve is mildly calcified. The aortic valve opens well. There is no aortic valve stenosis. There is trace aortic regurgitation. Tricuspid Valve: The tricuspid valve leaflets are thin and pliable. There is mild tricuspid regurgitation. Right ventricular systolic pressure is estimated to be 39 mmHg plus the clinically estimated CVP which cannot be estimated on this exam. Pulmonic Valve: The pulmonic valve leaflets are thin and pliable; valve motion is normal. There is trace pulmonic regurgitation. Great Vessels: The aortic root is mildly dilated. The ascending aorta is mildly enlarged. The pulmonary artery is normal size. The inferior vena cava was not well visualized. Pericardium/ Pleura There is no pericardial effusion. MMode/2D Measurements & Calculations LVIDd: 5.2 cm LVOT diam: 2.1 cm LVIDs: 3.3 cm Ao root diam: 4.0 cm FS: 35.4 % asc Aorta Diam: 3.8 cm EPSS: 0.55 cm Ao Arch Diam (Prox Trans): 2.5 cm IVSd: 1.0 cm LVPWd: 0.98 cm LV wells. diameter/BSA (cm/m^2): 2.7 LV sys. diameter/BSA (cm/m^2): 1.8 LA A2 area: 24.2 cm2 RA long axis: 5.8 cm LA A4 area: 30.2 cm2 RA area: 16.5 cm2 LA length (vol): 6.5 cm RA vol: 40.2 ml LA vol: 95.6 ml RA : 21.4 ml/m2 LA vol index: 50.8 ml/m2 RVD1 (basal): 4.4 cm RVD2 (mid): 3.8 cm TAPSE: 3.5 cm Doppler Measurements & Calculations Ao V2 max: 143.2 cm/sec LVOT Max Waylon: 130.8 cm/sec Ao V2 mean: 103.8 cm/sec LV V1 max P.8 mmHg Ao max P.2 mmHg LV V1 VTI: 31.2 cm Ao mean P.7 mmHg PIYUSH(I,D): 3.6 cm2 Ao V2 VTI: 28.8 cm PIYUSH(V,D): 3.1 cm2 sev ratio: 1.1 PIYUSH indexed to BSA (cm^2/m^2): 1.9 MV E max waylon: 63.5 cm/sec TR max waylon: 324.1 cm/sec MV A max waylon: 64.1 cm/sec TR max P.2 mmHg MV E/A: 0.99 PA V2 max: 96.9 cm/sec Med Peak E' Waylon: 5.8 cm/sec PA V2 mean: 66.9 cm/sec E/E' med: 10.9 PA mean P.0 mmHg Lat Peak E' Waylon: 6.2 cm/sec PA pr(Accel): 56.7 mmHg E/E' lat: 10.2 E/e' average: 10.6 MV dec time: 0.22 sec SV(LVOT): 104.9 ml Reading Physician:11:49 AM
--- NOTE | 2025-01-04 08:54 | DI.MRI.S_ITS ---
PROCEDURE: MR LUMBAR SPINE WO CON INDICATIONS: Bilateral leg weakness TECHNIQUE: Noncontrast sagittal T1 spin echo and T2 fast echo, sagittal STIR, and T2 fast spin echo through the lumbar spine. In cases with scoliosis, additional coronal T2 fast spin echo may be performed. COMPARISON: None. FINDINGS: Image quality: Excellent. Alignment and Curvature: There is normal bony alignment. Bone Marrow: Heterogeneously decreased bone marrow signal on the T1 weighted images, with areas of mild to moderately increased T2 signal on the fluid sensitive sequence. No dominant focal lesion seen otherwise. Spinal Cord: Conus medullaris terminates at the L1 level. Visualized cord demonstrates normal signal and size. Paraspinous Soft Tissues: No paravertebral masses. T12-L1: Normal appearance. L1-L2: Normal appearance. L2-L3: Normal appearance. L3-L4: Mild bilateral facet arthropathy, no significant spinal stenosis seen. L4-L5: Bilateral facet arthropathy with mild bilateral foraminal narrowing. L5-S1: Mild facet arthropathy, no significant spinal stenosis seen IMPRESSION: 1. Abnormal bone marrow signal. Given the history of malignancy, the possibility of metastatic disease should be considered. If there is significant elevation of PSA this could be further assessed with PSMA PET-CT, otherwise, FDG PET-CT could also be considered. 2. Mild degenerative changes, no compression fracture or other acute focal osseous lesion seen. Dictated by: Collin Conner M.D. on 01/04/2025 at 14:51 Approved by: Collin Conner M.D. on 01/04/2025 at 14:57
== END ==
PROVIDERS: PCP Family Medicine; Referring Provider Family Medicine; Visit Provider Family Medicine
DX: I07.1 Rheumatic tricuspid insufficiency (principal); R29.898 Other symptoms and signs involving the musculoskeletal system; R00.2 Palpitations; I77.89 Other specified disorders of arteries and arterioles; I77.810 Thoracic aortic ectasia; M47.816 Spondylosis without myelopathy or radiculopathy, lumbar region; M47.817 Spondylosis without myelopathy or radiculopathy, lumbosacral region; M48.061 Spinal stenosis, lumbar region without neurogenic claudication; M89.9 Disorder of bone, unspecified
CPT/HCPCS: 72148; 93306

== ENCOUNTER → 2025-05-16 11:49 | Outpatient (CLI) | payer MEDICARE, SELFPAY ==
[2025-05-16 13:48] LABS: Prostate Specific Antigen < 0.064 ng/mL (0.10-4.00)
== END ==
PROVIDERS: PCP Family Medicine; Referring Provider Urology; Visit Provider Urology
DX: C61 Malignant neoplasm of prostate (principal)
CPT/HCPCS: 36415; 84153

== ENCOUNTER → 2025-06-09 08:06 | Outpatient (CLI) | payer MEDICARE, SELFPAY ==
--- NOTE | 2025-06-09 08:08 | DI.CT.S_ITS ---
PROCEDURE: CT ABDOMEN PELVIS W CON
[2025-06-09 09:22] LABS: Estimated Glomerular Filt Rate > 60 mL/min (>60)
== END ==
LOC: CT 08:07
PROVIDERS: PCP Family Medicine; Referring Provider Internal Medicine; Visit Provider Internal Medicine
DX: C61 Malignant neoplasm of prostate (principal); R59.0 Localized enlarged lymph nodes; I25.10 Atherosclerotic heart disease of native coronary artery without angina pectoris; K76.0 Fatty (change of) liver, not elsewhere classified; N28.1 Cyst of kidney, acquired; K57.30 Diverticulosis of large intestine without perforation or abscess without bleeding
CPT/HCPCS: 36415; 74177; 82565; Q9967

== ENCOUNTER → 2025-06-26 10:33 | Outpatient (CLI) | payer MEDICARE, SELFPAY ==
[2025-06-26 11:09] LABS: Add Manual Diff / Slide Review NO; Hematocrit 38.8 % (41-53); Hemoglobin 13.0 g/dL (13.5-17.5); Lymphocytes Absolute Auto 1400 /uL (1100-4500); Mean Corpuscular HGB Conc 33.5 % (30-36); Mean Corpuscular Hemoglobin 31.9 PG (26-34); Mean Corpuscular Volume 95.1 fL (80-100); Platelet Count 156 X10^3/uL (150-400)
[2025-06-26 11:35] LABS: Alanine Aminotransferase 18 IU/L (<50); Albumin 4.3 g/dL (3.5-5.0); Albumin Globulin Ratio 1.5 (1.0-2.8); Alkaline Phosphatase 80 U/L (38-126); Blood Urea Nitrogen 22 mg/dL (9-20); Calcium 9.7 mg/dL (8.4-10.2); Carbon Dioxide 27 mmol/L (22-32); Chloride 104 mmol/L (98-107); Estimated Glomerular Filt Rate > 60 mL/min (>60); Globulin 2.8 g/dL (1.7-4.1); Glucose 100 mg/dL (70-99); HEMOLYSIS < 15 (0-50); Potassium 4.3 mmol/L (3.4-5.1); Sodium 140 mmol/L (137-145); Total Protein 7.1 g/dL (6.3-8.2)
[2025-06-26 12:07] LABS: Prostate Specific Antigen < 0.064 ng/mL (0.10-4.00)
== END ==
PROVIDERS: PCP Family Medicine; Referring Provider Internal Medicine; Visit Provider Internal Medicine
DX: C61 Malignant neoplasm of prostate (principal); E87.5 Hyperkalemia; R59.0 Localized enlarged lymph nodes
CPT/HCPCS: 36415; 80053; 83615; 84153; 85025